=== PATIENT | female | born 1990 | race Caucasian/White ===

== ENCOUNTER 2021-12-25 10:59 | Inpatient (IN) | payer OTHER ==
[~2021-12-25] VITALS: Ht 170.2 cm; Wt 79.8 kg
[2021-12-28] MEDS ORDERED: PRENATAL TABLE1 EAC4 (08:33)
== END 2021-12-30 16:22 | disposition home or self-care (01) | DRG 807 ==
LOC: NST 10:59 → LDR 12-28 05:00 → OB/GYN 12-28 16:55
PROVIDERS: ADMIT Obstetrics & Gynecology; ATTEND Obstetrics & Gynecology
PROC: 10E0XZZ Delivery of Products of Conception, External Approach (ICD-10-PCS; principal; 2021-12-28)
PROC: 4A1HXCZ Monitoring of Products of Conception, Cardiac Rate, External Approach (ICD-10-PCS; 2021-12-28)
DX: O80 Encounter for full-term uncomplicated delivery (principal); Z37.0 Single live birth; Z3A.38 38 weeks gestation of pregnancy; Z20.822 Contact with and (suspected) exposure to COVID-19